=== PATIENT | male | born 1965 | race Caucasian/White ===

== ENCOUNTER 2019-10-12 07:02 | Outpatient (CLI) | payer OTHER | END 2019-10-12 23:59 | disposition home or self-care (01) | LOC: CFH 07:02 | PROVIDERS: ATTEND Internal Medicine Cardiovascular Disease | DX: I73.9 Peripheral vascular disease, unspecified (principal); I71.4 Abdominal aortic aneurysm, without rupture; R94.31 Abnormal electrocardiogram [ECG] [EKG]; R07.89 Other chest pain | CPT/HCPCS: 93306; 93978 ==

== ENCOUNTER → 2019-10-16 | Outpatient (CLI) | payer OTHER | END | disposition home or self-care (01) | LOC: CFH 12:02 | PROVIDERS: ATTEND Internal Medicine Cardiovascular Disease | DX: R07.89 Other chest pain (principal); R93.1 Abnormal findings on diagnostic imaging of heart and coronary circulation; I71.4 Abdominal aortic aneurysm, without rupture; R06.02 Shortness of breath | CPT/HCPCS: 78452; 93017; A9502 ==

== ENCOUNTER 2019-12-01 10:05 | Day surgery (SDC) | payer OTHER ==
[~2019-12-01] VITALS: Ht 188 cm; Wt 97.7 kg
[2019-12-01 10:22] VITALS: BP 141/92
[2019-12-01] MEDS ORDERED: IBUP-1623 PO (10:29)
[2019-12-01] MEDS ORDERED: ASPI81TA45 PO (10:29)
[2019-12-01] MEDS ORDERED: FAMO-79 PO (10:29)
[2019-12-01] MEDS ORDERED: CETI10CA PO (10:29)
[2019-12-01 10:55] LABS: BASOPHILS % (AUTO) 1 % (0-1); EOSINOPHILS % (AUTO) 4 % (1-7); LYMPHOCYTES % (AUTO) 31 % (22-44); MEAN CORPUSCULAR HEMOGLOBIN 33.9 pg (27.5-34.5); MEAN CORPUSCULAR HGB CONC 34.3 g/dL (33.2-36.2); MEAN PLATELET VOLUME 8.4 fL (7.4-10.4); MONOCYTES % (AUTO) 8 % (2-9); NEUTROPHILS % (AUTO) 56 % (42-75); PLATELET COUNT 198 x10^3/uL (130-400); RED BLOOD COUNT 4.31 x10^6/uL (4.38-5.82); RED CELL DISTRIBUTION WIDTH 12.4 % (9.4-14.8)
[2019-12-01] MEDS ORDERED: NITROGLYCERIN 30 MCG/ML, 20ML VIAL ONE (10:58)
[2019-12-01] MEDS ORDERED: MIDAZOLAM 1 MG/ML, 5ML ONE (11:01)
[2019-12-01] MEDS ORDERED: VERAPAMIL 2.5 MG/ML, 2ML ONE (11:01)
[2019-12-01] MEDS ORDERED: LIDOCAINE 2%, 20ML ONE (11:01)
[2019-12-01] MEDS ORDERED: HEPARIN 1,000 UNITS/ML, 10ML ONE (11:01)
[2019-12-01] MEDS ORDERED: FENTANYL PF 100 MCG/2ML ONE (11:01)
[2019-12-01] MEDS ORDERED: BIVALIRUDIN 250 MG ONE (11:01)
[2019-12-01 11:02] LABS: ANION GAP 7 mmol/L (5-15); CALCIUM 9.1 mg/dL (8.5-10.1); CHLORIDE 112 mmol/L (98-107); CREATININE 0.95 mg/dL (0.7-1.3)
[2019-12-01 11:12] LABS: MD NO
== END 2019-12-01 13:48 | disposition home or self-care (01) ==
LOC: CACL 10:05
PROVIDERS: ATTEND Internal Medicine Cardiovascular Disease
DX: R93.1 Abnormal findings on diagnostic imaging of heart and coronary circulation (principal); I25.10 Atherosclerotic heart disease of native coronary artery without angina pectoris; E78.2 Mixed hyperlipidemia; Z79.82 Long term (current) use of aspirin; Z79.899 Other long term (current) drug therapy; Z72.89 Other problems related to lifestyle
CPT/HCPCS: 36415; 80048; 85025; 93458; 99156; C1769; C1894; J1644; J2250; J3010; Q9967; J0583

== ENCOUNTER 2020-09-22 11:37 | Day surgery (SDC) | payer OTHER ==
[~2020-09-22] VITALS: Ht 188 cm; Wt 87.7 kg
[~2020-09-22 11:37] MED LIST: ASPI81TA45 PO; CETI10CA PO; FAMO-79 PO; IBUP-1623 PO
[2020-09-22] MEDS ORDERED: LIDOCAINE 2%, 20ML ONE (12:16)
== END 2020-09-22 12:55 | disposition home or self-care (01) ==
LOC: CACL 11:37
PROVIDERS: ATTEND Internal Medicine Cardiovascular Disease
DX: R55 Syncope and collapse (principal); R00.2 Palpitations; Z79.82 Long term (current) use of aspirin; Z79.1 Long term (current) use of non-steroidal anti-inflammatories (NSAID); Z79.899 Other long term (current) drug therapy
CPT/HCPCS: 33285; C1764